=== PATIENT | male | born 1985 | race Caucasian/White ===

== ENCOUNTER 2024-04-04 13:32 | Emergency (ER) | payer BC ==
--- OUTSIDE RECORDS SUMMARY | 2024-04-04 13:36 | XMS REPORT | Continuity of Care Document ---
Author Name Unknown Address [address] [facility] [address] [place] [address] [facility] thconnect Address [address] [facility]. [address] [place] [address] Care Team Providers Care Accounts Adjustable Clerk Name Role Phone Mirlande ACOSTA, Mary Tiwari Primary Care Physician Rojelio Thao Attending Clinician + Unknown, Attending Attending Clinician Unavailab ROJELIO Guzmán Attending Clinician Unavailable Doctor Unassigned, [place] Attending Clinician U Boby Michele Attending Clinician + [phone] Unknown, Attending Attending Clinician Unavailab BOBY Castaneda Attending Clinician Unavailab Lorena Guardado Attending Clinician + [phone] LORENA HOPE Attending Clinician Unavailable Kwan Phillips - Eddie Attending Clinician Unavailable Perla Gaspar MD Attending Clinician Mary Lozano MD Attending Clinician [phone] Rojelio Thao Attending Clinician + SRINIVAS LUGO Attending Clinician UnaSrinivas Bangura MD Attending Clinician +[phone] PERLA GASPAR Attending Clinician Val YARITZA Ferrer Attending Clinician Unavailable Yaritza Esquivel MD Attending Clinician MARY LOZANO Attending Clinician Stu ross Only, Ang Db Test Attending Clinician Unavailabl basia Machuca FRAME HAND, Zoya Attending Clinician [phone] ZOYA MACHUCA Attending Clinician Unavailable 2, [facility] Lab Attending Clinician Unavailable NAOMI BARCENAS Attending Clinician Unavailable Lab, Adc Fam Pob I Attending Clinician Unavailab kathleen MENDOZA, Ritika S Attending Clinician [phone] Pete Garrison DO Attending Clinician [phone] Mingo RN, Tania T Attending Clinician Unavailab kathleen Barcenas FRAME HAND, Naomi Attending Clinician [phone] SRINIVAS LUGO Admitting Clinician Srinivas Maravilla MD Admitting Clinician +- [phone] Payers Payer Name Policy Type Policy Number Effective Date Expirati on Date Source [facility] - OUT OF STATE [id number] 2020 00:00:00 [employer] PPO GENERIC [id number] 2020 00:00:00 Problems Condition Name Condition Details Condition Category Status Onset Date Resolution Date Last Treatment Date Treating Clinician Comments Source Transamini tis Transamini tis Disease Active 01-18 00:00: 00 [facility] Therapeuti c drug monitoring Therapeuti c drug monitoring Disease Active 11-23 00:00: 00 [facility] At risk for bone density loss At risk for bone density loss Disease Active 11-23 00:00: 00 [facility] Elevated alanine aminotrans ferase (ALT) level Elevated alanine aminotrans ferase (ALT) level Disease Active 11-23 00:00: 00 [facility] Ulcerative colitis Ulcerative colitis Disease Active 07-23 00:00: 00 [facility] Testicular torsion Testicular torsion Disease Active 11-20 00:00: 00 Overview: Formattin g of this note might be different from the original. Formattin g of this note might be different from the original. 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 Disease Active 10-14 00:00: 00 [facility] Chronic ulcerative colitis with complicati on Chronic ulcerative colitis with complicati on Disease Active 08-12 00:00: 00 [facility] Chronic pain Chronic pain Disease Active 08-12 00:00: 00 [facility] Insomnia Insomnia Disease Active 08-12 00:00: 00 [facility] Allergies, Adverse Reactions, Alerts Allergy Name Allergy Type Status Severity Reaction(s) Onset Date Inactive Date Treating Clinician Comments Source NO KNOWN ALLERGIE S Drug Class Active [facility] Social History Social Habit Start Date Stop Date Quantity Comments Source History of tobacco use Cigarette Smoker [facility] Gender identity [facility] Sexual orientation [facility] Alcoholic beverage intake 2024-02-26 00:00:00 2024-02-26 00:00:00 0 /d [facility] Alcohol intake 2023-09-24 00:00:00 2023-09-24 00:00:00 0 /d [facility] History of Social function 2023-02-03 00:00:00 2023-02-03 00:00:00 [facility] Exposure to SARS-CoV-2 (event) 2022-08-25 00:00:00 2022-09-04 10:19:00 Not sure [facility] Tobacco use and exposure 2022-06-01 00:00:00 2022-06-01 00:00:00 Smokeless tobacco non-user [facility] Sex assigned at 1985 00:00:00 1985 00:00:00 [facility] Smoking Status Start Date Stop Date Source Ex-smoker 2022-06-01 00:00:00 2022-06-01 00:00:00 [facility] Medications Ordered Medication Name Filled Medication Name Start Date Stop Date Current Medication? Ordering Clinician Indication Dosage Frequency Signature (SIG) Comments Components Source predniSONE 20 mg tablet 2023-05 0-13 00:00: 00 03-27 05:59 :00 Yes [id number] Take 3 tablets by mouth daily for 7 days, THEN 2 tablets daily for 7 days, THEN 1 tablet daily for 7 days. [facility] dexamethaso ne (DECADRON) injection 10 mg 2023-05 0-06 00:15: 00 02-25 23:20 :00 No [id number] 10mg 10 mg, Intramuscu lar, ONCE, 1 dose, On 02/26/24 at 1915, Routine [facility] predniSONE 20 mg tablet 2023-05 0-06 00:00: 00 03-04 04:59 :00 Yes [id number] 40mg Take 2 tablets by mouth in the morning for 5 days. [facility] triamcinolo ne acetonide (KENALOG) injection 40 mg 11-04 16:00: 00 11-04 15:14 :00 No [id number] 40mg [facility] predniSONE 20 mg tablet 11-04 10:04: 00 Yes [facility] vedolizumab (ENTYVIO IV) 11-04 10:03: 32 Yes Inject intravenou sly once every month. [facility] triamcinolo ne acetonide 0.1 % ointment 11-04 00:00: 00 11-10 04:59 :00 No [id number] Apply to area(s) 2 (two) times daily for 5 days. [facility] predniSONE 20 mg tablet 11-04 00:00: 00 11-10 04:59 :00 No [id number] 20mg Take 1 tablet by mouth in the morning and 1 tablet in the evening. Do all this for 5 days. [facility] traZODone 100 mg tablet 09-23 00:00: 00 Yes [id number] 100mg Take 1 tablet by mouth at bedtime. [facility] predniSONE 20 mg tablet 2022-05 00:00: 00 03-18 04:59 :00 No [id number] 40mg Take 2 tablets by mouth in the morning for 5 days. [facility] dexamethaso ne (DECADRON) injection 10 mg 2022-05 19:15: 00 03-11 18:17 :00 No [id number] 10mg [facility] water for irrigation irrigation solution 02-03 15:50: 00 02-03 16:16 :49 No PRN, Starting on Wed02/03/23 at 1050, Until Wed02/03/23 at 1116, Routine, Intra-op [facility] simethicone (GAS RELIEF (SIMETHICON E)) 40 mg/0.6 mL drops 02-03 15:50: 00 02-03 16:16 :49 No PRN, Starting on Wed02/03/23 at 1050, Until Wed02/03/23 at 1116, Routine, Intra-op [facility] lactated ringers IV infusion 1,000 mL 02-03 15:00: 00 02-03 15:04 :00 No 1000mL at 42 mL/hr, 1,000 mL, IV Infusion, ONCE, 1 dose, On Wed02/03/23 at 1000, Routine, DSU Pre-op [facility] vedolizumab (ENTYVIO IV) 02-03 11:51: 54 Yes Inject intravenou sly once every month. [facility] ciprofloxac in HCl (CIPRO) 500 mg tablet 11-21 00:00: 00 11-27 04:59 :00 No [id number] 500mg Take 1 tablet by mouth every 12 (twelve) hours for 5 days. [facility] vedolizumab (ENTYVIO IV) 09-04 10:34: 38 Yes Inject intravenou sly once every month. [facility] traZODone 100 mg tablet 09-04 00:00: 00 09-23 00:00 :00 No [id number] 100mg Take 1 tablet by mouth at bedtime. [facility] triamcinolo ne acetonide (KENALOG) injection 40 mg 06-01 18:30: 00 06-01 17:36 :00 No [id number] 40mg [facility] predniSONE 10 mg tablet 06-01 00:00: 00 06-17 05:59 :00 No [id number] Take 4 tablets by mouth daily for 5 days, THEN 2 tablets daily for 5 days, THEN 1 tablet daily for 5 days. [facility] traZODone 100 mg tablet 08-12 00:00: 00 09-04 00:00 :00 No [id number] 100mg Take 1 tablet by mouth at bedtime. [facility] vedolizumab (ENTYVIO IV) 07-11 10:20: 02 Yes Inject intravenou sly once every month. [facility] HYDROcodone -acetaminop hen 7.5-325 mg per tablet 11-17 00:00: 00 Yes 1{tbl} 1 tablet 3 (three) times daily as needed for Pain. [facility] traMADOL (ULTRAM) 50 mg tablet 07-23 00:00: 00 Yes 50mg Take 1 tablet by mouth in the morning and 1 tablet in the evening. [facility] Immunizations Ordered Immunization Name Filled Immunization Name Date Status Comments Source Influenza Virus Vaccine Quad IM, Preserv and ABX Free 6 MO-64 YRS (FLUCELVAX) 2023-03-11 00:00:00 Completed [facility] Influenza Virus Vaccine Quad IM, Preserv and ABX Free 6 MO-64 YRS (FLUCELVAX) 2023-03-11 00:00:00 Completed [facility] TDAP 2022-11-21 00:00:00 Completed [facility] TDAP 2022-11-21 00:00:00 Completed [facility] TDAP 2022-11-21 00:00:00 Completed [facility] TDAP 2022-11-21 00:00:00 Completed [facility] TDAP 2022-11-21 00:00:00 Completed [facility] TDAP 2022-11-21 00:00:00 Completed [facility] Influenza Virus Vaccine Quad IM 3+ YRS 2017-07-26 00:00:00 Completed [facility] Influenza Virus Vaccine Quad IM 3+ YRS 2017-07-26 00:00:00 Completed [facility] Influenza Virus Vaccine Quad IM 3+ YRS 2017-07-26 00:00:00 Completed [facility] Influenza Virus Vaccine Quad IM 3+ YRS 2017-07-26 00:00:00 Completed [facility] Influenza Virus Vaccine Quad IM 3+ YRS 2017-07-26 00:00:00 Completed [facility] Influenza Virus Vaccine Quad IM 3+ YRS 2017-07-26 00:00:00 Completed [facility] Influenza Virus Vaccine Quad IM 3+ YRS 2017-07-26 00:00:00 Completed [facility] Influenza Virus Vaccine Quad IM 3+ YRS 2017-07-26 00:00:00 Completed [facility] Influenza Virus Vaccine Quad IM 3+ YRS 2017-07-26 00:00:00 Completed [facility] Influenza Virus Vaccine Quad IM 3+ YRS 2017-07-26 00:00:00 Completed [facility] Influenza Virus Vaccine Quad IM 3+ YRS 2017-07-26 00:00:00 Completed [facility] Influenza Virus Vaccine Quad IM 3+ YRS 2017-07-26 00:00:00 Completed [facility] Influenza Virus Vaccine Quad IM 3+ YRS 2017-07-26 00:00:00 Completed [facility] PPD (TB) 2014-04-13 00:00:00 Completed [facility] PPD (TB) 2014-04-13 00:00:00 Completed [facility] PPD (TB) 2014-04-13 00:00:00 Completed [facility] PPD (TB) 2014-04-13 00:00:00 Completed [facility] PPD (TB) 2014-04-13 00:00:00 Completed [facility] PPD (TB) 2014-04-13 00:00:00 Completed [facility] PPD (TB) 2014-04-13 00:00:00 Completed [facility] PPD (TB) 2014-04-13 00:00:00 Completed [facility] PPD (TB) 2014-04-13 00:00:00 Completed [facility] PPD (TB) 2014-04-13 00:00:00 Completed [facility] PPD (TB) 2014-04-13 00:00:00 Completed [facility] PPD (TB) 2014-04-13 00:00:00 Completed [facility] PPD (TB) 2014-04-13 00:00:00 Completed [facility] Influenza Virus Vaccine Quad IM 3+ YRS Unknown Completed [facility] PPD (TB) Unknown Completed [facility] Influenza Virus Vaccine Quad IM 3+ YRS Unknown Completed [facility] PPD (TB) Unknown Completed [facility] TDAP Unknown Completed [facility] Influenza Virus Vaccine Quad IM, Preserv and ABX Free 6 MO-64 YRS (FLUCELVAX) Unknown Completed [facility] Influenza Virus Vaccine Quad IM 3+ YRS Unknown Completed [facility] PPD (TB) Unknown Completed [facility] TDAP Unknown Completed [facility] Influenza Virus Vaccine Quad IM, Preserv and ABX Free 6 MO-64 YRS (FLUCELVAX) Unknown Completed [facility] Influenza Virus Vaccine Quad IM 3+ YRS Unknown Completed [facility] PPD (TB) Unknown Completed [facility] TDAP Unknown Completed [facility] Influenza Virus Vaccine Quad IM, Preserv and ABX Free 6 MO-64 YRS (FLUCELVAX) Unknown Completed [facility] Influenza Virus Vaccine Quad IM 3+ YRS Unknown Completed [facility] PPD (TB) Unknown Completed [facility] TDAP Unknown Completed [facility] Influenza Virus Vaccine Quad IM, Preserv and ABX Free 6 MO-64 YRS (FLUCELVAX) Unknown Completed [facility] Influenza Virus Vaccine Quad IM 3+ YRS Unknown Completed [facility] PPD (TB) Unknown Completed [facility] TDAP Unknown Completed [facility] Influenza Virus Vaccine Quad IM, Preserv and ABX Free 6 MO-64 YRS (FLUCELVAX) Unknown Completed [facility] Influenza Virus Vaccine Quad IM 3+ YRS Unknown Completed [facility] PPD (TB) Unknown Completed [facility] TDAP Unknown Completed [facility] Influenza Virus Vaccine Quad IM, Preserv and ABX Free 6 MO-64 YRS (FLUCELVAX) Unknown Completed [facility] Influenza Virus Vaccine Quad IM 3+ YRS Unknown Completed [facility] PPD (TB) Unknown Completed [facility] TDAP Unknown Completed [facility] Influenza Virus Vaccine Quad IM, Preserv and ABX Free 6 MO-64 YRS (FLUCELVAX) Unknown Completed [facility] Influenza Virus Vaccine Quad IM 3+ YRS Unknown Completed [facility] PPD (TB) Unknown Completed [facility] TDAP Unknown Completed [facility] Influenza Virus Vaccine Quad IM, Preserv and ABX Free 6 MO-64 YRS (FLUCELVAX) Unknown Completed [facility] Influenza Virus Vaccine Quad IM 3+ YRS Unknown Completed [facility] PPD (TB) Unknown Completed [facility] TDAP Unknown Completed [facility] Influenza Virus Vaccine Quad IM, Preserv and ABX Free 6 MO-64 YRS (FLUCELVAX) Unknown Completed [facility] Influenza Virus Vaccine Quad IM 3+ YRS Unknown Completed [facility] PPD (TB) Unknown Completed [facility] TDAP Unknown Completed [facility] Influenza Virus Vaccine Quad IM, Preserv and ABX Free 6 MO-64 YRS (FLUCELVAX) Unknown Completed [facility] Vital Signs Vital Name Observation Time Observation Value Comments S ource Systolic blood pressure 2024-02-26 23:16:00 123 mm[Hg] [facility] Diastolic blood pressure 2024-02-26 23:16:00 83 mm[Hg] [facility] Heart rate 2024-02-26 23:16:00 93 /min [facility] Body temperature 2024-02-26 23:16:00 36.89 Kassandra [facility] Respiratory rate 2024-02-26 23:16:00 16 /min [facility] Body height 2024-02-26 23:16:00 172.7 cm [facility] Body weight 2024-02-26 23:16:00 88.406 kg [facility] BMI 2024-02-26 23:16:00 29.63 kg/m2 [facility] Oxygen saturation in Arterial blood by Pulse oximetry 2024-02-26 23:16:00 96 /min [facility] Systolic blood pressure 2023-11-05 15:01:00 131 mm[Hg] [facility] Diastolic blood pressure 2023-11-05 15:01:00 81 mm[Hg] [facility] Heart rate 2023-11-05 15:01:00 76 /min [facility] Body temperature 2023-11-05 15:01:00 36.72 Kassandra [facility] Respiratory rate 2023-11-05 15:01:00 18 /min [facility] Body weight 2023-11-05 15:01:00 88.406 kg [facility] BMI 2023-11-05 15:01:00 29.63 kg/m2 [facility] Oxygen saturation in Arterial blood by Pulse oximetry 2023-11-05 15:01:00 98 /min [facility] Systolic blood pressure 2023-09-24 16:13:00 114 mm[Hg] [facility] Diastolic blood pressure 2023-09-24 16:13:00 75 mm[Hg] [facility] Heart rate 2023-09-24 16:13:00 99 /min [facility] Body height 2023-09-24 16:13:00 172.7 cm [facility] Body weight 2023-09-24 16:13:00 88.451 kg [facility] BMI 2023-09-24 16:13:00 29.65 kg/m2 [facility] Oxygen saturation in Arterial blood by Pulse oximetry 2023-09-24 16:13:00 97 /min [facility] Systolic blood pressure 2023-03-11 17:54:00 119 mm[Hg] [facility] Diastolic blood pressure 2023-03-11 17:54:00 80 mm[Hg] [facility] Heart rate 2023-03-11 17:54:00 85 /min [facility] Body temperature 2023-03-11 17:54:00 37 Kassandra [facility] Respiratory rate 2023-03-11 17:54:00 16 /min [facility] Body height 2023-03-11 17:54:00 172.7 cm [facility] Body weight 2023-03-11 17:54:00 86.75 kg [facility] BMI 2023-03-11 17:54:00 29.08 kg/m2 [facility] Oxygen saturation in Arterial blood by Pulse oximetry 2023-03-11 17:54:00 97 /min [facility] Systolic blood pressure 2023-02-03 16:40:00 122 mm[Hg] [facility] Diastolic blood pressure 2023-02-03 16:40:00 83 mm[Hg] [facility] Heart rate 2023-02-03 16:40:00 82 /min [facility] Respiratory rate 2023-02-03 16:40:00 10 /min [facility] Oxygen saturation in Arterial blood by Pulse oximetry 2023-02-03 16:40:00 99 /min [facility] Body temperature 2023-02-03 16:15:00 36.67 Kassandra [facility] Body height 2023-01-29 19:00:00 172.7 cm [facility] Body weight 2023-01-29 19:00:00 88.451 kg [facility] BMI 2023-01-29 19:00:00 29.65 kg/m2 [facility] Systolic blood pressure 2023-02-03 16:20:00 127 mm[Hg] [facility] Diastolic blood pressure 2023-02-03 16:20:00 92 mm[Hg] [facility] Heart rate 2023-02-03 16:20:00 99 /min [facility] 2023-02-03 16:20:00 17 /min [facility] Oxygen saturation in Arterial blood by Pulse oximetry 2023-02-03 16:20:00 99 /min [facility] Body temperature 2023-02-03 16:15:00 36.67 Kassandra [facility] Body height 2023-01-29 19:00:00 172.7 cm [facility] Body weight 2023-01-29 19:00:00 88.451 kg [facility] BMI 2023-01-29 19:00:00 29.65 kg/m2 [facility] Systolic blood pressure 2022-11-22 00:12:00 107 mm[Hg] [facility] Diastolic blood pressure 2022-11-22 00:12:00 69 mm[Hg] [facility] Heart rate 2022-11-22 00:11:00 90 /min [facility] Body temperature 2022-11-22 00:11:00 36.67 Kassandra [facility] Respiratory rate 2022-11-22 00:11:00 18 /min [facility] Body height 2022-11-22 00:11:00 172.7 cm [facility] Body weight 2022-11-22 00:11:00 86.773 kg [facility] BMI 2022-11-22 00:11:00 29.09 kg/m2 [facility] Oxygen saturation in Arterial blood by Pulse oximetry 2022-11-22 00:11:00 98 /min [facility] Systolic blood pressure 2022-09-04 15:29:00 118 mm[Hg] [facility] Diastolic blood pressure 2022-09-04 15:29:00 73 mm[Hg] [facility] Heart rate 2022-09-04 15:29:00 79 /min [facility] Body temperature 2022-09-04 15:29:00 36.89 Kassandra [facility] Respiratory rate 2022-09-04 15:29:00 18 /min [facility] Body height 2022-09-04 15:29:00 172.7 cm [facility] 2022-09-04 15:29:00 88.361 kg [facility] BMI 2022-09-04 15:29:00 29.62 kg/m2 [facility] Oxygen saturation in Arterial blood by Pulse oximetry 2022-09-04 15:29:00 97 /min [facility] Systolic blood pressure 2022-06-01 17:14:00 141 mm[Hg] [facility] Diastolic blood pressure 2022-06-01 17:14:00 85 mm[Hg] [facility] Heart rate 2022-06-01 17:14:00 86 /min [facility] Body temperature 2022-06-01 17:14:00 37.17 Kassandra [facility] Respiratory rate 2022-06-01 17:14:00 18 /min [facility] Body height 2022-06-01 17:14:00 172.7 cm [facility] Body weight 2022-06-01 17:14:00 89.018 kg [facility] BMI 2022-06-01 17:14:00 29.84 kg/m2 [facility] Oxygen saturation in Arterial blood by Pulse oximetry 2022-06-01 17:14:00 99 /min [facility] Systolic blood pressure 2022-01-02 18:59:00 123 mm[Hg] [facility] Diastolic blood pressure 2022-01-02 18:59:00 73 mm[Hg] [facility] Heart rate 2022-01-02 18:59:00 92 /min [facility] Body height 2022-01-02 18:59:00 172.7 cm [facility] Body weight 2022-01-02 18:59:00 91.627 kg [facility] BMI 2022-01-02 18:59:00 30.71 kg/m2 [facility] Oxygen saturation in Arterial blood by Pulse oximetry 2022-01-02 18:59:00 97 /min [facility] Procedures Procedure Date / Time Performed Performing Clinician Source VITAMIN B6, PLASMA 2023-10-05 13:23:00 Lorena Hope [facility] MAGNESIUM 2023-10-05 13:23:00 Lorena Hope [facility] VITAMIN B12, LEVEL 2023-10-05 13:23:00 Lorena Hope [facility] THYROID STIMULATING HORMONE 2023-10-05 13:23:00 Lorena Hope [facility] COMP. METABOLIC PANEL ([id number]) 2023-10-05 13:23:00 Lorena Hope [facility] LIPID PANEL ([id number])(TOTAL CHOLESTEROL, TRIGLYCERIDES, HDL) 2023-10-05 13:23:00 Lorena Hope [facility] CBC WITH DIFF 2023-10-05 13:23:00 [facility] GLYCOSYLATED HEMOGLOBIN (A1C) 2023-10-05 13:23:00 Lorena Hope [facility] VITAMIN D, 25-OH 2023-10-05 13:23:00 Lorena Hope [facility] EXTERNAL PROVIDER RECORDS 2023-04-01 06:01:00 Doctor Unassigned, [place] [facility] FLU VACC (), 6 MO-64 YRS, .5ML, IM, QUAD (FLUCELVAX) 2023-03-11 18:00:03 Rojelio Bray [facility] COLONOSCOPY 2023-02-03 15:33:00 Srinivas Lugo [facility] COLONOSCOPY (ENDO) 2023-02-03 13:06:33 Mary Lozano [facility] COLONOSCOPY (ENDO) 2023-02-03 13:06:33 Mary Lozano [facility] EXTERNAL PROVIDER RECORDS 2023-01-29 05:01:00 Doctor Unassigned, [place] [facility] EXTERNAL PROVIDER RECORDS 2023-01-13 05:01:00 Doctor Unassigned, [place] [facility] EXTERNAL PROVIDER RECORDS 2023-01-13 05:01:00 Doctor Unassigned, [place] [facility] REFERRAL- REQUEST/RESPONSE 2023-01-12 05:01:00 Doctor Unassigned, [place] [facility] REFERRAL- REQUEST/RESPONSE 2023-01-12 05:01:00 Doctor Unassigned, [place] [facility] TDAP VACCINE, >11 YRS, IM 2022-11-22 00:20:33 Rojelio Bray [facility] ASSIGNMENT OF BENEFITS 2022-09-04 15:20:50 Docto r Unassigned, [place] [facility] EXTERNAL PROVIDER RECORDS 2022-01-12 05:01:00 Doctor Unassigned, [place] [facility] Encounters Start Date/Time End Date/Time Encounter Type Admission Type Attending [facility] Facility Care Department Encounter ID Source 2022-07-24 09:24:52 Outpatient [facility] [id number] [facility] 2021-12-17 10:00:02 Outpatient [facility] [id number] [facility] 2021-09-04 14:27:05 Outpatient [facility] [id number] [facility] 2021-03-23 18:30:45 Emergency [facility] [id number] [facility] 2024-03-05 00:00:00 2024-03-05 13:14:35 Telephone Rojelio Bray [facility] 1..840.114 350.1.13.10 4.2.7.2.686 [id number] [facility] 2024-02-26 15:40:00 2024-02-26 18:08:27 Urgent Care Rojelio Bray, Attending [facility] 1..840.114 350.1.13.10 4.2.7.2.686 [id number] [facility] 2024-02-26 15:40:00 2024-02-26 18:08:27 Outpatient R ROJELIO BRAY [facility] [id number] [facility] 2023-10-21 00:00:00 2023-11-27 18:27:57 Patient Secure Msg Doctor Unassigned, [place] [facility] 1..840.114 350.1.13.10 4.2.7.2.686 [id number] [facility] 2023-11-05 10:00:00 2023-11-05 10:20:00 Urgent Care Boby Amaral, Attending [facility] 1.284.114 350.1.13.10 4.2.7.2.686 [id number] [facility] 2023-11-05 10:00:00 2023-11-05 10:00:00 Outpatient R BOBY AMARAL [facility] [id number] [facility] 2023-10-22 00:00:00 2023-10-22 12:36:47 Letter (Out) [facility] 1..114 350.1.13.10 4.2.7.2.686 [id number] [facility] 2023-10-06 00:00:00 2023-10-06 15:12:30 Telephone Lorena Hope [facility] 1.84.114 350.1.13.10 4.2.7.2.686 [id number] [facility] 2023-10-05 08:15:00 2023-10-05 08:33:06 Outpatient R LORENA HOPE [facility] [id number] [facility] 2023-10-05 08:15:00 2023-10-05 08:33:06 Core Inspector Visit Lab, Ang - Lorena Kate [facility] 1.840.114 350.1.13.10 4.2.7.2.686 [id number] [facility] 2023-09-24 11:30:00 2023-09-24 11:46:50 Outpatient R LORENA HOPE [facility] [id number] [facility] 2023-09-24 11:30:00 2023-09-24 11:46:50 Office Visit Lorena Hope [facility] 1.84.114 350.1.13.10 4.2.7.2.686 [id number] [facility] 2023-09-14 00:00:00 2023-09-14 00:00:00 Refill Perla Gaspar [facility] 1.84.114 350.1.13.10 4.2.7.2.686 [id number] [facility] 2023-04-01 00:00:00 2023-04-01 00:00:00 Orders Only Doctor Unassigned, [place] [facility] 1.84.114 350.1.13.10 4.2.7.2.686 [id number] [facility] 2023-03-25 00:00:00 2023-03-25 00:00:00 Telephone Mary Lozano [facility] 1.840.114 350.1.13.10 4.2.7.2.686 [id number] [facility] 2023-03-11 13:00:00 2023-03-11 13:26:00 Outpatient R ROJELIO BRAY [facility] [id number] [facility] 2023-03-11 13:00:00 2023-03-11 13:26:00 Urgent Care Rojelio Bray Unknown, Attending [facility] 1.840.114 350.1.13.10 4.2.7.2.686 [id number] [facility] 2023-02-03 09:51:00 2023-02-03 11:49:00 Outpatient R SRINIVAS PIMENTEL [facility] [id number] [facility] 2023-02-03 09:51:00 2023-02-03 11:49:00 Hospital Encounter Srinivas Pimentel [facility] 1.840.114 350.1.13.10 4.2.7.2.686 [id number] [facility] 2023-02-03 10:41:00 2023-02-03 11:23:00 Surgery Srinivas Pimentel [facility] 1.2840.114 350.1.13.10 4.2.7.2.686 [id number] [facility] 2023-01-29 00:00:00 2023-01-29 00:00:00 Orders Only Doctor Unassigned, [place] [facility] 1.2840.114 350.1.13.10 4.2.7.2.686 [id number] [facility] 2022-11-21 18:40:00 2022-11-21 19:00:00 Urgent Care Rojelio Bray Unknown, Attending [facility] 1..114 350.1.13.10 4.2.7.2.686 [id number] [facility] 2022-11-21 18:40:00 2022-11-21 18:40:00 Outpatient R ROJELIO BRAY [facility] [id number] [facility] 2022-09-14 00:00:00 2022-09-14 00:00:00 Mary Lara [facility] 1.0.114 350.1.13.10 4.2.7.2.686 [id number] [facility] 2022-09-04 10:30:00 2022-09-04 10:45:00 Office Visit Perla Gaspar [facility] 1.840.114 350.1.13.10 4.2.7.2.686 [id number] [facility] 2022-09-04 10:30:00 2022-09-04 10:30:00 Outpatient R PERLA GASPAR [facility] [id number] [facility] 2022-09-04 00:00:00 2022-09-04 00:00:00 Orders Only Doctor Unassigned, [place] [facility] 1..840.114 350.1.13.10 4.2.7.2.686 [id number] [facility] 2022-08-14 00:00:00 2022-08-14 00:00:00 Refill Mary Lozano [facility] 1.2.840.114 350.1.13.10 4.2.7.2.686 [id number] [facility] 2022-06-01 11:00:00 2022-06-01 11:21:14 Outpatient R YARITZA ESQUIVEL [facility] [id number] [facility] 2022-06-01 11:00:00 2022-06-01 11:21:14 Urgent Care Yaritza Esquivel Unknown, Attending [facility] 1..840.114 350.1.13.10 4.2.7.2.686 [id number] [facility] 2022-01-12 00:00:00 2022-01-12 00:00:00 Orders Only Doctor Unassigned, [place] [facility] 1.2.840.114 350.1.13.10 4.2.7.2.686 [id number] [facility] 2022-01-02 14:20:27 2022-01-02 23:59:00 Outpatient R MARY LOZANO [facility] [id number] [facility] 2022-01-02 14:00:00 2022-01-02 14:15:00 Office Visit Mary Lozano [facility] 1..840.114 350.1.13.10 4.2.7.2.686 [id number] [facility] 2022-01-02 14:00:00 2022-01-02 14:00:00 Outpatient R MARY LOZANO [facility] [id number] [facility] 2021-08-12 13:15:00 2021-08-12 13:30:00 Office Visit Mary Lozano [facility] 1..840.114 350.1.13.10 4.2.7.2.686 [id number] [facility] 2021-08-12 13:15:00 2021-08-12 13:15:00 Outpatient R MARY LOZANO [facility] [id number] [facility] 2021-06-05 16:00:00 2021-06-05 16:15:00 Laboratory Only Only, Ang Db Test Sven [facility] 1..840.114 350.1.13.10 4.2.7.2.686 [id number] [facility] 2021-06-05 16:00:00 2021-06-05 16:06:55 Outpatient R SVENBOSSMANY [facility] [id number] [facility] 2021-05-13 10:30:00 2021-05-13 10:30:00 Core Inspector Visit 2, Adc Lab Srinivas Pimentel [facility] N[facility] BUILD[facility] 1..840.114 350.1.13.10 4.2.7.2.686 [id number] [facility] 2021-05-13 10:30:00 2021-05-13 10:20:32 Outpatient SRINIVAS ARANGO [facility] [id number] [facility] 2020-12-23 13:20:00 2020-12-23 13:20:00 Outpatient R MELONY BARCENASTHIA [facility] [id number] [facility] 2020-12-04 16:54:32 2020-12-04 17:14:32 Laboratory Only Lab, Adc Fam Pob I MunirAdeBoby J [facility] One 1.114 350.1.13.10 4.2.7.2.686 [id number] [facility] 2020-12-04 17:00:00 2020-12-04 17:00:00 Outpatient R BOBY AMARAL [facility] [id number] [facility] 2020-11-27 00:00:00 2020-11-27 00:00:00 Telephone Mary Lozano [facility] One 1.114 350.1.13.10 4.2.7.2.686 [id number] [facility] 2020-11-26 00:00:00 2020-11-26 00:00:00 Orders Only Doctor Unassigned, [place] [facility] 1.114 350.1.13.10 4.2.7.2.686 [id number] [facility] 2020-10-01 16:31:00 2020-10-01 18:33:00 Emergency Ritika Monge S [facility] 1..114 350.1.13.10 4.2.7.2.686 [id number] [facility] 2020-10-01 00:00:00 2020-10-01 00:00:00 Orders Only Doctor Unassigned, [place] [facility] 1.0.114 350.1.13.10 4.2.7.2.686 [id number] [facility] 2020-09-16 14:45:00 2020-09-16 14:45:00 Outpatient R SRINIVAS PIMENTEL [facility] [id number] [facility] 2020-09-16 13:47:10 2020-09-16 14:02:10 Core Inspector Visit 2, Adc Lab Srinivas Pimentel [facility] nal Building 1.114 350.1.13.10 4.2.7.2.686 [id number] [facility] 2020-09-16 00:00:00 2020-09-16 00:00:00 Orders Only Doctor Unassigned, [place] [facility] 1..114 350.1.13.10 4.2.7.2.686 [id number] [facility] 2020-08-12 00:00:00 2020-08-12 00:00:00 Patient Outreach Pete Garrison [facility] 1..114 350.1.13.10 4.2.7.2.686 [id number] [facility] 2020-07-16 16:12:12 2020-07-16 16:27:12 Office Visit Mary Lozano [facility] Office Building One 1.114 350.1.13.10 4.2.7.2.686 [id number] [facility] 2020-07-16 16:15:00 2020-07-16 16:15:00 Outpatient R MARY LOZANO [facility] [id number] [facility] 2020-07-11 00:00:00 2020-07-11 00:00:00 Refill Mary Lozano [facility] Office Building One 1.114 350.1.13.10 4.2.7.2.686 [id number] [facility] 2020-07-11 00:00:00 2020-07-11 00:00:00 Siomarajuanis Mary Lozano [facility] Office Building One 1.114 350.1.13.10 4.2.7.2.686 [id number] [facility] 2020-01-27 00:00:00 2020-01-27 00:00:00 Letter (Out) Tania Aguila [facility] 1. 350.1.13.10 4.2.7.2.686 [id number] [facility] 2020-01-27 00:00:00 2020-01-27 00:00:00 Patient Secure Msg Doctor Unassigned, [place] [facility] 1. 350.1.13.10 4.2.7.2.686 [id number] [facility] 2020-01-26 10:42:02 2020-01-26 11:02:02 Laboratory Only Lab, [facility] One 1. 350.1.13.10 4.2.7.2.686 [id number] [facility] 2020-01-26 11:00:00 2020-01-26 11:00:00 Outpatient R NAOMI BARCENAS [facility] [id number] [facility] 2019-12-15 00:00:00 2019-12-15 00:00:00 Orders Only Doctor Unassigned, [place] [facility] 1.114 350.1.13.10 4.2.7.2.686 [id number] [facility] 2019-11-16 00:00:00 2019-11-16 00:00:00 Orders Only Doctor Unassigned, [place] [facility] 1.114 350.1.13.10 4.2.7.2.686 [id number] [facility] 2019-07-11 10:03:39 2019-07-11 10:18:39 Office Visit Mary Lozano [facility] Office Building One 1.84.114 350.1.13.10 4.2.7.2.686 [id number] [facility] 2019-07-11 00:00:00 2019-07-11 00:00:00 Orders Only Doctor Unassigned, [place] [facility] 1..114 350.1.13.10 4.2.7.2.686 [id number] [facility] 2019-05-30 00:00:00 2019-05-30 00:00:00 Refill Mirlande [facility] Office Building One 1.114 350.1.13.10 4.2.7.2.686 [id number] [facility] Results Test Description Test Time Test Comments Results Result Co mments Source [facility], [id number] 21:30:38* Test Item Value Reference Range Interpretation Comme [facility] VIT B12 (test code = 5739779928) 536 pg/mL 240-930 ARABELLA (test code = ARABELLA) Biotin has been reported to cause a positive bias, interpret results relative to patient's use of biotin. Lab Interpretation (test code = 95086-6) Normal [facility]it[facility] D, [id number] 21:09:57* Test Item Value Reference Range Interpretation Comme [facility] VIT D 25OH (test code = 25183-0) 35 ng/mL 25-80 ARABELLA (test code = ARABELLA) Deficiency: <20 ng/mLInsufficiency : 20-24 ng/mLOptimal: 25-80 ng/mL Lab Interpretation (test code = 99117-7) Normal [facility] HospitalGlycosylated Hemoglobin (A1C)2023-10-05 20:06:11* Test Item Value Reference Range Interpretation Comme nts HGB A1C (test code = 4548-4) 5.3 % 4.0-5.7 ARABELLA (test code = ARABELLA) Reference RangesNormal: <5.7%Prediabetes: 5.7 - 6.4%Diabetes: > 6.5% Lab Interpretation (test code = 68477-3) Normal [facility] HospitalThyroid Stimulating [id number] 18:56:55 * Test Item Value Reference Range Interpretation Comme nts TSH (test code = 9463312391) 1.24 0.45-4.70 Lab Interpretation (test cod e = 06368-9) Normal [facility] HospitalLipid Panel (51173)(Total Cholesterol, Triglycerides, HDL)2023-10-05 18:29:09* Test Item Value Reference Range Interpretation Comme nts CHOL (test code = 3010034101) 189 mg/dL 120-200 HDL (test code = 4317932084) 28 mg/dL >=40 L HDLC RATIO (test code = 0676817024) 6.8 <=5.0 H TRIG (test code = 8264096056) 250 mg/dL 30-170 H LDL CHOL (test code = 12186-4) 111 mg/dL <=160 VLDL (test code = 9854097612) 50 mg/dL 5-60 Lab Interpretation (test cod e = 67148-2) Abnormal [facility] Hospital[facility]esium2024-05-14 18:29:09* Test Item Value Reference Range Interpretation Comme nts MAGNESIUM (test code = 1750836520) 1.8 mg/dL 1.7-2.4 Lab Interpretation (test cod e = 90018-9) Normal [facility] HospitalComp. Metabolic Panel (17373)2023-10-05 18:29:08* Test Item Value Reference Range Interpretation Comme nts NA (test code = 5064938457) 133 mmol/L 135-145 L K (test code = 2281354402) 4.0 mmol/L 3.5-5.0 CL (test code = 6472130932) 97 mmol/L 98-108 L CO2 TOTAL (test code = 7964328334) 30 mmol/L 23-31 AGAP (test code = 2684113636) 6 2-16 BUN (test code = 3441473614) 12 mg/dL 7-23 GLUCOSE (test code = 7266196350) 98 mg/dL 70-110 CREATININE (test code = 2160-0) 0.89 mg/dL 0.60-1.25 TOTAL BILI (test code = 3397344328) 1.0 mg/dL 0.1-1.1 CALCIUM (test code = 7432151430) 8.8 mg/dL 8.6-10.6 T PROTEIN (test code = 0232206674) 7.3 g/dL 6.3-8.2 ALBUMIN (test code = 5737288682) 4.1 g/dL 3.5-5.0 ALK PHOS (test code = 2542821935) 59 U/L 34-122 ALTv (test code = 1742-6) 87 U/L 5-50 H AST(SGOT) (test code = 8559229166) 51 U/L 13-40 H eGFR (test code = 11661-9) 111.1 mL/min/1.73m2 CKD-EPI eGFR (2020). Assuming creatinine has been stable day-to-day for at least three months, the eGFR indicates Category G1 (>= 90 mL/min/1.73 m2) Lab Interpretation (test code = 16283-2) Abnormal [facility] HospitalCb with [id number] 18:22:05* Test Item Value Reference Range Interpretation Comme nts WBC (test code = 6690-2) 7.99 4.20-10.70 RBC (test code = 789-8) 4.64 4.26-5.52 HGB (test code = 718-7) 15.2 g/dL 12.2-16.4 HCT (test code = 4544-3) 42.8 % 38.4-49.3 MCV (test code = 787-2) 92.2 fL 81.7-95.6 MCH (test code = 785-6) 32.8 pg 26.1-32.7 H MCHC (test code = 786-4) 35.5 g/dL 31.2-35.0 H RDW-SD (test code = 69468-4) 46.0 fL 38.5-51.6 RDW-CV (test code = 788-0) 13.5 % 12.1-15.4 PLT (test code = 777-3) 234 150-328 MPV (test code = 50486-6) 9.9 fL 9.8-13.0 NRBC/100 WBC (test code = 8882513598) 0.0 0.0-10.0 NRBC x10^3 (test code = 2516137366) See_Comment [Automated messa ge] The system which generated this result transmitted reference range: 10*3/?L. The reference range was not used to interpret this result as normal/abnormal. GRAN MAT (NEUT) % (test code = 770-8) 56.0 % IMM GRAN % (test code = 8752007777) 0.10 % LYMPH % (test code = 736-9) 35.3 % MONO % (test code = 5905-5) 6.8 % EOS % (test code = 713-8) 1.4 % BASO % (test code = 706-2) 0.4 % GRAN MAT x10^3(ANC) (test code = 1571321211) 4.48 10*3/uL 1.99-6.95 IMM GRAN x10^3 (test code = 2519396307) 0.00-0.06 LYMPH x10^3 (test code = 731-0) 2.82 10*3/uL 1.09-3.23 MONO x10^3 (test code = 742-7) 0.54 10*3/uL 0.36-1.02 EOS x10^3 (test code = 711-2) 0.11 10*3/uL 0.06-0.53 BASO x10^3 (test code = 704-7) 0.03 10*3/uL 0.01-0.09 Lab Interpretation (test code = 53356-5) Abnormal [facility] History and Physical Notes Date/Time Note Provider Source 2023 14:07:27 Formatting of this n ote might be different from the original. Outpatient Preop H&P Referring Physician: Kyle Henriquez MD [address] [address] (phone) (fax) Mary Lozano MD [address] [place] [address] (phone) (fax) Chief Complaint: Follow up-Entyvio Vital Signs: BP (mmHg) Pulse (bpm) Weight (lbs/oz) Height (ft/in) BMI Resp/min Temp 132/80 83 192 / 5 / 8 29.19 16 98.6 (F) History of Present Illness: Tc De Anda is seen today for a follow-up visit. Doing well except the right wrist is swollen when he uses it. He went to Dr Dennis and to a hand specialist in [facility] ULCERATIVE COLITIS PROFILE: AGE OF DIAGNOSIS:20 YEAR OF DIAGNOSIS: 2008 SURGERY: NO. SGI(PROMETHEUS): NO TPMT: Normal activity LAST QUANTIFERON:09-16-2020: Negative BIOLOGICS: Remicade, Humira, Enbrel. Humira STOPPED. Restarted ENTYVIO loading dose May 2018. 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 Ulcerative Colitis Surgical Procedures: Tonsillectomy Medications: Entyvio 300 mg ADMINISTER 300 MG INTRAVENOUSLY OVER 30 MINUTES THIS WEEK AND THEN EVERY 4 WEEKS hydrocodone-acetaminophen 5-325 mg tramadol 50 mg trazodone 100 mg Allergies: Patient has no known allergies or drug allergies Immunizations: Hep A, adult Hep B, adult Influenza, seasonal, injectable Shingles Procedure(s) Performed: Colonoscopy, 12/15/2019, Quiescent lindquist ulcerative colitis Colonoscopy, 08-31-2013, Moderately diffuse idiopathic chronic colitis Colonoscopy, 04-09-2011, Moderately severe pancolitis with backwash ileitis Social History Alcohol: None Tobacco: Former smoker Drugs: None Exercise: None Caffeine: Occasionally. Marital Status: Occupation: NA Family History No history of Celiac sprue, Colon cancer, Colon polyps, Crohn's disease, Liver disease, Stomach cancer, Ulcerative Colitis / IBD Review of Systems: Allergic/Immunologic: Denies HIV exposure, persistent infections, strong allergic reactions or urticaria. Cardiovascular: Denies chest pain, dyspnea with exercise, irregular heart beat, orthopnea, palpitations, peripheral edema, syncope. Constitutional: Complains of fatigue. Denies fever, loss of appetite, malaise, sweats, weight gain, weight loss. ENMT: Denies difficulty swallowing, dizziness, ear pain, nasal obstruction, nose bleeds, sore throat, hearing loss. Endocrine: Denies excessive thirst, hair loss, heat intolerance. Eyes: Denies double vision, loss of vision, photophobia. Gastrointestinal: Complains of abdominal pain, diarrhea. Denies abdominal swelling, change in bowel habits, constipation, gas, heartburn, jaundice, nausea, rectal bleeding, stomach cramps, vomiting, dysphagia, black tarry stools, belching, bloating, Rectal Pain. Genitourinary: Denies dark urine, decrease in urine flow, dysuria, frequent urinary infections, frequent urination, hematuria, impotence, nocturia, urethral discharge or incontinence. Hematologic/Lymphatic: Denies bleeding gums or palpable lymph nodes, easy bruising, prolonged bleeding. Integumentary: Complains of allergies. Denies dryness, hives, itching, jaundice, lesions, rashes. Musculoskeletal: Complains of arthritis, back pain, joint pain, muscle weakness, stiffness. Denies gout, joint deformity. Neurological: Denies dizziness, fainting, frequent headaches, migraine, numbness or tingling, seizures, tremors, vertigo, memory loss. Psychiatric: Complains of difficulty sleeping. Denies anxiety, depression, hallucinations, nervousness, panic attacks, paranoia. Respiratory: Denies asthma, cough, dyspnea, excessive sputum, hemoptysis, shortness of breath with exercise, wheezing. Physical Exam: Constitutional: Appearance: well-developed, appropriate grooming, in no acute distress.. Respiratory: Effort: normal respiratory effort and no intercostal retractions. Auscultation: normal breath sounds, no rubs, wheezes or rhonchi. Cardiovascular: Auscultation: normal, S1 and S2,no gallops,no rubs or murmurs. Peripheral: no edema, varicosities or cyanosis. Gastrointestinal/Abdomen: Abdomen: normal consistency, no tenderness or masses,normal bowel sounds. Liver/Spleen: normal,normal size,not palpable. Lab Results: Test 12/19/2021 12/19/2021 04/26/2019 Units Limits IRON AND TOTAL IRON BINDING CAPACITY % SATURATION 30 33 % (calc) 20 - 48 IRON BINDING CAPACITY 352 315 mcg/dL (calc) 250 - 425 IRON, TOTAL 107 104 mcg/dL 50 - 180 CBC (INCLUDES DIFF/PLT) ABSOLUTE BAND NEUTROPHILS DNR DNR cells/uL 0-750 ABSOLUTE BASOPHILS 41 19 cells/uL 0 - 200 ABSOLUTE BLASTS DNR DNR cells/uL 0 ABSOLUTE EOSINOPHILS 113 154 cells/uL 15 - 500 ABSOLUTE LYMPHOCYTES 3770 4090 cells/uL 850 - 3900 ABSOLUTE METAMYELOCYTES DNR DNR cells/uL 0 ABSOLUTE MONOCYTES 845 691 cells/uL 200 - 950 ABSOLUTE MYELOCYTES DNR DNR cells/uL 0 ABSOLUTE NEUTROPHILS 5531 4646 cells/uL 1500 - 7800 ABSOLUTE NUCLEATED RBC DNR DNR cells/uL 0 ABSOLUTE PROMYELOCYTES DNR DNR cells/uL 0 BAND NEUTROPHILS DNR DNR % BASOPHILS 0.4 0.2 % BLASTS DNR DNR % COMMENT(S) DNR DNR EOSINOPHILS 1.1 1.6 % HEMATOCRIT 45.5 43.2 % 38.5 - 50 HEMOGLOBIN 16.4 15.5 g/dL 13.2 - 17.1 LYMPHOCYTES 36.6 42.6 % MCH 31.9 32.0 pg 27 - 33 MCHC 36.0 35.9 g/dL 32 - 36 MCV 88.5 89.1 fL 80 - 100 METAMYELOCYTES DNR DNR % MONOCYTES 8.2 7.2 % MPV 9.9 10.1 fL 7.5 - 12.5 MYELOCYTES DNR DNR % NEUTROPHILS 53.7 48.4 % NUCLEATED RBC DNR DNR /100 WBC 0 PLATELET COUNT 267 231 Thousand/uL 140 - 400 PROMYELOCYTES DNR DNR % RDW 13.7 13.9 % 11 - 15 REACTIVE LYMPHOCYTES DNR DNR % 0-10 RED BLOOD CELL COUNT 5.14 4.85 Million/uL 4.2 - 5.8 WHITE BLOOD CELL COUNT 10.3 9.6 Thousand/uL 3.8 - 10.8 HEPATIC FUNCTION PANEL ALBUMIN 4.4 4.5 g/dL 3.6 - 5.1 ALBUMIN/GLOBULIN RATIO 1.5 1.7 (calc) 1 - 2.5 ALKALINE PHOSPHATASE 49 53 U/L 40 - 115 ALT 134 70 U/L 9 - 46 AST 53 37 U/L 10 - 40 BILIRUBIN, DIRECT 0.2 0.2 mg/dL < 0.2 BILIRUBIN, INDIRECT 0.7 0.7 mg/dL (calc) 0.2 - 1.2 BILIRUBIN, TOTAL 0.9 0.9 mg/dL 0.2 - 1.2 GLOBULIN 3.0 2.7 g/dL (calc) 1.9 - 3.7 PROTEIN, TOTAL 7.4 7.2 g/dL 6.1 - 8.1 COMPREHENSIVE METABOLIC PANEL ALBUMIN 4.4 4.5 g/dL 3.6 - 5.1 ALBUMIN/GLOBULIN RATIO 1.5 1.7 (calc) 1 - 2.5 ALKALINE PHOSPHATASE 49 53 U/L 40 - 115 ALT 134 70 U/L 9 - 46 AST 53 37 U/L 10 - 40 BILIRUBIN, TOTAL 0.9 0.9 mg/dL 0.2 - 1.2 BUN/CREATININE RATIO NOT APPLICABLE NOT APPLICABLE (calc) 6-22 CALCIUM 9.3 9.4 mg/dL 8.6 - 10.3 CARBON DIOXIDE 30 28 mmol/L 20 - 32 CHLORIDE 99 101 mmol/L 98 - 110 CREATININE 1.19 0.90 mg/dL 0.6 - 1.35 EGFR 80 mL/min/1.73m2 > 60 eGFR 127 mL/min/1.73m2 > 60 eGFR NON-AFR. ANDORRAN 109 mL/min/1.73m2 > 60 GLOBULIN 3.0 2.7 g/dL (calc) 1.9 - 3.7 GLUCOSE 93 82 mg/dL 65 - 99 POTASSIUM 4.3 4.0 mmol/L 3.5 - 5.3 PROTEIN, TOTAL 7.4 7.2 g/dL 6.1 - 8.1 SODIUM 137 138 mmol/L 135 - 146 UREA NITROGEN (BUN) 11 7 mg/dL 7 - 25 HEPATITIS B SURFACE ANTIGEN W/REFL CONFIRM CONFIRMATION DNR HEPATITIS B SURFACE ANTIGEN NON-REACTIVE NON-REACTIVE VITAMIN B12/FOLATE, SERUM PANEL FOLATE, SERUM 20.8 ng/mL VITAMIN B12 683 pg/mL 200 - 1100 QUANTIFERON(R)-TB GOLD PLUS, 1 TUBE MITOGEN-NIL >10.00 IU/mL NIL 0.05 IU/mL QUANTIFERON(R)-TB GOLD PLUS, 1 TUBE NEGATIVE NEGATIVE TB1-NIL 0.01 IU/mL TB2-NIL 0.01 IU/mL T-SPOT(R).TB NEGATIVE CONTROL Passed PANEL A SPOT COUNT CORRECTED FOR NEG CONTROL 0 PANEL B SPOT COUNT CORRECTED FOR NEG CONTROL 1 POSITIVE CONTROL Passed T-SPOT.TB Negative SeeBelow SED RATE BY MODIFIED WESTERGREN SED RATE BY MODIFIED WESTERGREN 2 mm/h < 15 VITAMIN D,25-OH,TOTAL,IA VITAMIN D,25-OH,TOTAL,IA 35 31 ng/mL 30 - 100 Impressions: 1. Ulcerative colitis,Quiescent colitis on 2019. Doing very well on Entyvio with no issues. Plan: Continue Entyvio q 4 weeks at [facility] in [place]; Phone [phone].. Colonoscopy 2. Enteropathic arthropathies- IBD. Plan: CBC w/auto diff CMP (Complete Metabolic Panel) LFT's - Hepatic Panel Amylase and Lipase Vitamin D, 25 Hydroxy (25-OH) Folate / B-12 (serum) Iron /Ferritin/ TIBC / Iron Sat% T-SPOT TB test Colonoscopy with [facility] 02-03-2023 The indications, technique, alternatives, and potential risks and complications were discussed with the patient including, but not limited to, bleeding, perforation, missed lesions, and anesthesia complications. The patient understands the above, wishes to proceed and has given informed consent. Written patient education information was provided to the patient. MAC sedation required due to medical conditions documented above Preop IV orders: IV NS or LR at 50cc/hr Srinivas Lugo MD 02/03/23 9:50 AM [facility] Notes Date/Time Note Provider Source 2024-03-05 13:11:35 Patient states his poison sukumar has not improved since being seen last. He took steroid injection and oral steroids. He states it got a little better but now seems to be spreading still. Will place him on 3 week taper. He states understanding. [facility] 2023-10-05 08:15:00 Images from the original note were not included. Venipuncture collection performed by clean technique on the right anticubitus. Total of 1 attempts were made. Slight pressure and a bandage/dressing were applied to the site(s). The patient experienced no complications. The following specimens were processed according to instructions and sent to [facility] laboratories per lab order on 10/05/2023 : LT BLUE SST 3 RED LAV 2 PPT DK GREEN (LiHep) DK GREEN (SodH) ELMORE DK BLUE (K2) DK BLUE (S) ACD Blood Culture NIPT/NTD 1 lt green [facility] 2023-09-14 12:44:56 Contacted patient. Verbalized understanding. Will make appointment Cindi Gonzales [facility] 2023-09-14 11:52:30 Appointment needed for refills [facility] 2023-09-14 09:15:45 Notes: Please Review Last Refilled: traZODone 100 mg tablet 30 tablet 12 09/04/2022 -- -- Sig: Take 1 tablet by mouth at bedtime. Sent to pharmacy as: traZODone 100 mg tablet (DESYREL) Class: eRX Route: Oral Order: [id number] Date/Time Signed: 09/04/2022 10:42 E-Prescribing Status: Receipt confirmed by pharmacy (09/04/2022 10:42 AM CDT) Recent Visits Date Type Provider Dept 09/04/22 Office Visit Perla Gaspar MD [facility] Med Showing recent visits within past 540 days with a meds authorizing provider and meeting all other requirements Future Appointments No visits were found meeting these conditions. Showing future appointments within next 150 days with a meds authorizing provider and meeting all other requirements [facility] 2023-01-29 14:01:33 Formatting of this n ote might be different from the original. Images from the original note were not included. Your upcoming procedure is at [facility] on 02/03/23. The address is [address] [place] [address], [facility], [id number].The nursing staff at [facility] will call you the workday before your procedure to let you know what time to arrive. When you arrive, please go inside and sign in at the desk. Please note: You may not travel home alone after your procedure and that includes in a taxi or by bus. We must speak to your Responsible Adult (who will be picking you up) the morning of your procedure, before the start of your procedure. This person must be an adult over the age of 18 years of age. Maintain a clear liquid diet the entire day before your procedure. Do not drink anything containing red, blue, or purple dyes. Follow the instructions of your bowel prep as directed by you physician. You may also take your medications the morning of your procedure with a sip of water as directed by physician. Anticoagulants will be per physician Guidance. Medication Note(s)/Instructions: n/a Both patient and person accompanying and/or picking patient up must be able to wear a mask and be without symptoms of COVID 19. Pending screening, a COVID test may be required. If a patient tests positive, their cases are cancelled and/or rescheduled. COVID NOTE: Denies COVID symptoms or exposure, no testing required. Additional questions, concerns, requests:n/a Patient verbalized understanding of pre-op instructions and voiced no further questions at this time. [facility] [employer]
--- NOTE | 2024-04-04 14:21 | RAD REPORT ---
EXAM: CT brain without contrast HISTORY: PAIN COMPARISON: 03/12/2014 plain radiograph TECHNIQUE: Multiple contiguous axial images were obtained and a CT of the brain without contrast. Sag ittal and coronal reformats were performed. One or more of the following dose reduction techniques were used: Automated exposure control, adjust ment of the mA and/or kV according to patient size, and/or iterative reconstruction. FINDINGS: No evidence of hydrocephalus, intracranial hemorrhage, or extra-axial fluid collection. The brain is normal in morphology. No evidence of midline shift or areas of brain edema. The calvarium is intact. The visualized paranasal sinuses and mastoid air cells are essentially clear . IMPRESSION: No evidence of acute intracranial abnormality. EXAM: CT of the cervical spine without contrast HISTORY: Neck pain, injury PAIN TECHNIQUE: Multiple contiguous axial images were obtained in a CT of the cervical spine without contr ast. Sagittal and coronal reformats were performed. FINDINGS: The vertebral bodies demonstrate normal height and alignment. No evidence of acute fracture or subluxation.. No degenerative changes are present. No prevertebral soft tissue swelling is seen. The posterior facets are well aligned. Normal alignment of the skull base with the cervical spine is seen. The lung apices are unremarkable. IMPRESSION: No evidence of acute osseous abnormality of the cervical spine.
--- NOTE | 2024-04-04 14:22 | RAD REPORT ---
EXAM: XR LEFT HAND HISTORY: Pain. PAIN COMPARISON: None TECHNIQUE: Multiple projections of the left hand submitted. FINDINGS: Fracture is suspected involving the base of the second metacarpal radial aspect. No disloca tion.. Mild soft tissue swelling.
--- NOTE | 2024-04-04 14:24 | RAD REPORT ---
EXAM: CT CHEST, ABDOMEN AND PELVIS WITHOUT CONTRAST CLINICAL INDICATION: pain TECHNIQUE: CT chest, abdomen and pelvis was performed without contrast, as per department protocol. A xial, sagittal and coronal reconstructions were obtained. One or more of the following dose reduction techniques were used: Automated exposure control, adjustment of the mA and/or kV according to patient size, and/or iterative reconstruction. Unless otherwise specified, incidental findings do not require dedicated imaging follow-up. Examination is limited by the lack of intravenous contrast material. COMPARISON: No prior exam. FINDINGS: LUNGS: No evidence of airspace or interstitial process. No nodules. PLEURA: No pleural effusion. No pneumothorax. MEDIASTINUM AND LYMPH NODES: No mediastinal mass or fluid collection. Normal size mediastinal, hilar, and axillary lymph nodes. OSSEOUS STRUCTURES AND CHEST WALL: Intact. LIVER: Normal in size and contour. No focal lesion or biliary dilatation. Grossly unremarkable gallbl adder. PANCREAS: No mass, ductal dilation, or lee-pancreatic fluid. SPLEEN: Normal size. No focal lesion. ADRENALS: Normal; no mass. KIDNEYS: Normal size and contour. No hydronephrosis. URINARY BLADDER: Normal contour. GASTROINTESTINAL TRACT: No bowel obstruction, free air, significant free fluid or abscess. APPENDIX: Normal appendix. LYMPH NODES: No lymphadenopathy. MUSCULOSKELETAL: No acute or suspicious osseous abnormality. OTHER: IMPRESSION: No acute or significant abnormalities seen in the chest, abdomen or pelvis.
--- NOTE | 2024-04-04 14:25 | RAD REPORT ---
EXAMINATION: XR LEFT FOREARM CLINICAL INDICATION: PAIN TECHNIQUE: Multiple projections of the left forearm were obtained. COMPARISON: No prior exam. FINDINGS: No fracture or dislocation seen in the forearm.
--- NOTE | 2024-04-04 14:25 | RAD REPORT ---
EXAMINATION: XR RIGHT FOREARM CLINICAL INDICATION: . PAIN TECHNIQUE:Two view radiograph of the right forearm were obtained. COMPARISON: No prior exam. FINDINGS: Bony remodeling distal radius and ulnar shaft likely attributable to trauma. No evidence of acute fracture or dislocation.
[2024-04-04] MEDS ORDERED: DIAZEPAM 5 MG TABLET ONE (14:48)
[2024-04-04] MEDS ORDERED: KETOROLAC 30 MG/ML INJ ONE (14:48)
--- NOTE | 2024-04-04 14:58 | ER ---
Nurse's Notes [facility] Name: Tc De Anda Age: 39 yrs Sex: Male : 1985 Arrival Date: 04/04/2024 Time: 13:32 Bed 26 Private MD: Diagnosis: Fracture of second metacarpal, left hand;Abrasion of lower leg-bilateral;Unspecified injury of head, initial encounter;Pain in left forearm;Pain in right forearm Presentation: 04/04 13:39 Chief complaint: Patient states: Fell 7 feet off a ladder about 1 hour FLOORHAND. Landed on ll1 ladder, no LOC. L wrist pain is the worst. Abrasions B knees. Abrasion R side of face. Coronavirus screen: Client denies travel out of the [place] in the last 14 days. At this time, the client does not indicate any symptoms associated with coronavirus-19. Ebola Screen: Patient denies travel to an Ebola-affected area in the 21 days before illness onset. Initial Sepsis Screen: Does the patient meet any 2 criteria? No. Patient's initial sepsis screen is negative. Does the patient have a suspected source of infection? No. Patient's initial sepsis screen is negative. Risk Assessment: Do you want to hurt yourself or someone else? Patient reports no desire to harm self or others. Onset of symptoms was April 04, 2024. 13:39 Method Of Arrival: Ambulatory ll1 13:39 Acuity: CALLI 3 ll1 Triage Assessment: 13:41 General: Appears uncomfortable, Behavior is calm, cooperative, appropriate for age. ll1 Pain: Complains of pain in L wrist Pain currently is 8 out of 10 on a pain scale. Quality of pain is described as aching. Derm: Reports abrasions to knees, R side of face. Musculoskeletal: Reports pain in L wrist. Injury Description: Bruise. Historical: - Allergies: 13:39 No Known Allergies; ll1 - PMHx: 13:39 ulcerative colitis; ll1 - PSHx: 13:39 Tonsillectomy; ll1 - Immunization history:: Adult Immunizations up to date. - Infectious Disease History:: Denies. - Social history:: Smoking status: Patient denies any tobacco usage or history of. Screenin:56 [facility] ED Fall Risk Assessment (Adult) History of falling in the last 3 months, ph including since admission Yes- single mechanical fall (1 pt) Confusion or Disorientation No (0 pts) Intoxicated or Sedated No (0 pts) Impaired Gait No (0 pts) Mobility Assist Device Used No (0 pt) Altered Elimination No (0 pt) Score/Fall Risk Level 0 - 2 = Low Risk Oriented to surroundings, Maintained a safe environment. Abuse screen: Denies threats or abuse. Denies injuries from another. Nutritional screening: No deficits noted. Tuberculosis screening: No symptoms or risk factors identified. Assessment: 13:55 General: Appears in no apparent distress. comfortable, Behavior is calm, cooperative, ph appropriate for age. Pain: Complains of pain in right knee and left knee and left wrist. Neuro: Level of Consciousness is awake, alert, obeys commands, Oriented to person, place, time, situation. Cardiovascular: Capillary refill < 3 seconds in bilateral fingers Patient's skin is warm and dry. Respiratory: Airway is patent Respiratory effort is even, unlabored, Respiratory pattern is regular, symmetrical. Derm: Skin is pink, warm \T\ dry. Vital Signs: 13:39 BP 148 / 101; Pulse 92; Resp 17; Temp 97.9; Pulse Ox 100% ; Pain 8/10; ll1 15:45 BP 138 / 97; Pulse 89; Resp 18; Temp 97.9; Pulse Ox 98% on R/A; ph 13:39 Pain Scale: Adult ll1 Jessy Coma Score: 15:45 Eye Response: spontaneous(4). Motor Response: obeys commands(6). Verbal Response: ph oriented(5). Total: 15. Trauma Score (Adult): 15:45 Eye Response: spontaneous(1); Verbal Response: oriented(1); Motor Response: obeys ph commands(2); Systolic BP: > 89 mm Hg(4); Respiratory Rate: 10 to 29 per min(4); Eastern Score: 15; Trauma Score: 12 ED Course: 13:34 Patient arrived in ED. mg5 13:35 Radha Mehta FNP-C is [facility]. kb 13:35 Leif Edwards DO is Attending Physician. kb 13:41 Triage completed. ll1 13:41 Arm band placed on. ll1 13:45 Lidia Garcia RN is Primary Nurse. ph 13:57 Patient has correct armband on for positive identification. Call light in reach. Side ph rails up X 1. Pulse ox on. NIBP on. 14:08 Head C Spine Mpr Wo Con In Process Unspecified. EDMS 14:10 Chest Abd Pelvis Wo Con In Process Unspecified. EDMS 14:18 Forearm Left XRAY In Process Unspecified. EDMS 14:18 Forearm Right XRAY In Process Unspecified. EDMS 14:18 Hand Left 3 View XRAY In Process Unspecified. EDMS 15:44 No provider procedures requiring assistance completed. Patient did not have IV access ph during this emergency room visit. Orthoglass splint: radial gutter Sling applied to left arm. Administered Medications: 14:54 Drug: Diazepam PO 5 mg PO once Route: PO; ph 15:45 Follow up: Response: No adverse reaction; Pain is decreased ph 14:54 Drug: Ketorolac IM 30 mg IM once Route: IM; Site: right deltoid; ph 15:45 Follow up: Response: No adverse reaction; Pain is decreased ph Medication: 13:57 VIS not applicable for this client. ph Outcome: 14:58 Discharge ordered by . kb 15:45 Discharged to home ambulatory, with family, ph 15:45 Condition: good 15:45 Discharge instructions given to patient, Instructed on discharge instructions, follow up and referral plans. medication usage, Demonstrated understanding of instructions, follow-up care, medications, splint care, Prescriptions given X 2, 15:46 Patient left the ED. ph Signatures: Dispatcher [employer] EDMS Radha Mehta, MARINE INSULATOR-C MARINE INSULATOR-Lidia Tolbert RN RN Urvashi Cervantes RN RN 1 Hedy Hutchison mg5 Corrections: (The following items were deleted from the chart) 13:41 13:39 Chief complaint: Patient states: Fell 7 feet off a ladder just FLOORHAND. Landed on ll1 ladder, no LOC. L wrist pain is the worst. Abrasions B knees. Abrasion R side of face. ll1
--- NOTE | 2024-04-04 14:58 | EDPHYS ---
Physician Documentation [facility] Name: Tc De Anda Age: 39 yrs Sex: Male : 1985 Arrival Date: 04/04/2024 Time: 13:32 Bed 26 Private MD: ED Physician Leif Edwards HPI: 04/04 13:43 This 39 yrs old Male presents to ER via Ambulatory with complaints of FELL OFF LADDER. kb 13:43 Pt is a 39 year old male who presents after falling from a ladder. States his waist was kb the the level of the roof, the ladder slid from the bottom and fell forward causing him to fall with it to the ground. Reports most pain in left wrist and hand, with some stiffness in neck. Denies shortness of breath. loc. 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 . Historical: - Allergies: 13:39 No Known Allergies; ll1 - PMHx: 13:39 ulcerative colitis; ll1 - PSHx: 13:39 Tonsillectomy; ll1 - Immunization history:: Adult Immunizations up to date. - Infectious Disease History:: Denies. - Social history:: Smoking status: Patient denies any tobacco usage or history of. ROS: 13:43 Constitutional: As per HPI kb Exam: 13:43 Constitutional: This is a well developed, well nourished patient who is awake, alert, kb and in no acute distress. Eyes: Pupils equal round and reactive to light, extra-ocular motions intact. Lids and lashes normal. Conjunctiva and sclera are non-icteric and not injected. Cornea within normal limits. Periorbital areas with no swelling, redness, or edema. ENT: Moist Mucous membranes Cardiovascular: Regular rate Respiratory: Respirations even and unlabored. No increased work of breathing. Talking in full sentences Abdomen/GI: Soft, non-tender. No distention Neuro: Awake and alert, GCS 15, oriented to person, place, time, and situation. 13:43 Musculoskeletal/extremity: Extremities: grossly normal except: noted in the left wrist and left hand: decreased ROM, pain, tenderness, noted in the right knee and left knee: abrasion, noted in the right wrist: pain, tenderness, ROM: limited active range of motion, Circulation is intact in all extremities. Sensation intact. Weight bearing: able to fully bear weight, 13:46 Head/face: Noted is no obvious of injury or deformity except abrasion(s), that are kb mild, of the right taoist, Vital Signs: 13:39 BP 148 / 101; Pulse 92; Resp 17; Temp 97.9; Pulse Ox 100% ; Pain 8/10; ll1 15:45 BP 138 / 97; Pulse 89; Resp 18; Temp 97.9; Pulse Ox 98% on R/A; ph 13:39 Pain Scale: Adult ll1 Pooler Coma Score: 15:45 Eye Response: spontaneous(4). Motor Response: obeys commands(6). Verbal Response: ph oriented(5). Total: 15. Trauma Score (Adult): 15:45 Eye Response: spontaneous(1); Verbal Response: oriented(1); Motor Response: obeys ph commands(2); Systolic BP: > 89 mm Hg(4); Respiratory Rate: 10 to 29 per min(4); Pooler Score: 15; Trauma Score: 12 MDM: 13:35 Medical Screening Exam initiated kb 13:46 Differential diagnosis: fracture, contusion, sprain. Data reviewed: vital signs, nurses kb notes. Historians other than the Patient: Spouse/Significant Other: . 14:56 Counseling: I had a detailed discussion with the patient and/or guardian regarding the kb historical points, exam findings, and any diagnostic results supporting the discharge/admit diagnosis, radiology results, the need for outpatient follow up, a orthopedic surgeon, to return to the emergency department if symptoms worsen or persist or if there are any questions or concerns that arise at home. 04/04 13:43 Order name: Forearm Left XRAY; Complete Time: 14:28 kb 04/04 13:43 Order name: Forearm Right XRAY; Complete Time: 14:28 kb 04/04 13:43 Order name: Hand Left 3 View XRAY; Complete Time: 14:28 kb 04/04 14:07 Order name: Chest Abd Pelvis Wo Con; Complete Time: 14:28 EDMS 04/04 14:08 Order name: Head C Spine Mpr Wo Con; Complete Time: 14:22 EDMS 04/04 14:32 Order name: Misc. Order: Radial gutter splint; Complete Time: 15:45 kb 04/04 14:36 Order name: Sling; Complete Time: 15:45 ph Administered Medications: 14:54 Drug: Diazepam PO 5 mg PO once Route: PO; ph 15:45 Follow up: Response: No adverse reaction; Pain is decreased ph 14:54 Drug: Ketorolac IM 30 mg IM once Route: IM; Site: right deltoid; ph 15:45 Follow up: Response: No adverse reaction; Pain is decreased ph Disposition: 15:07 I was immediately available on-site in the Emergency Department for consultation in the ms3 care of the patient. Disposition Summary: 04/04/24 14:58 Discharge Ordered Notes: Location: Home kb Condition: Stable kb Diagnosis - Fracture of second metacarpal, left hand kb - Abrasion of lower leg - bilateral kb - Unspecified injury of head, initial encounter kb - Pain in left forearm kb - Pain in right forearm kb Followup: kb - With: Emergency Department - When: As needed - Reason: Worsening of condition Followup: kb - With: Private Physician - When: 2 - 3 days - Reason: Recheck today's complaints, Continuance of care, Re-evaluation by your physician Discharge Instructions: - Discharge Summary Sheet kb - Head Injury, Pediatric kb - Musculoskeletal Pain kb - Metacarpal Fracture, [id number] kb Forms: - Medication Reconciliation Form kb - Antibiotic Education kb - Prescription Opioid Use kb - Patient Portal Instructions kb - Leadership Thank You Letter kb - Work release form Prescriptions: - Diclofenac Sodium 75 mg Oral tablet, delayed release (enteric coated) - take 1 tablet ORAL route 2 times per day As needed; 30 tablet; Refills: 0, kb Product Selection Permitted - orphenadrine citrate 100 mg Oral Tablet Sustained Release - take 1 tablet ORAL route 2 times per day As needed; 20 tablet; Refills: 0, kb Product Selection Permitted Signatures: Dispatcher [employer] EDMS Radha Mehta, MASTIC MAN-C MASTIC MAN-Lidia Tolbert RN RN ph Urvashi Cervantes RN RN 1 Leif Edwards DO DO ms3 Corrections: (The following items were deleted from the chart) 13:44 13:44 Forearm Left+RAD.RAD.BRZ ordered. EDMS EDMS 13:44 13:44 Forearm Right+RAD.RAD.BRZ ordered. EDMS EDMS 13:44 13:44 Hand Left 3 View+RAD.RAD.BRZ ordered. EDMS EDMS 14:08 13:44 Head C Spine Cap Wo Con+CT.RAD.BRZ ordered. EDMS EDMS
[2024-04-04 15:56] VITALS: TEMP 97.9
[2024-04-04 15:57] VITALS: BP 138/97; O2SAT 98
== END 2024-04-04 15:46 | disposition home or self-care (01) ==
LOC: ER 13:32
DX: S62.301A Unspecified fracture of second metacarpal bone, left hand, initial encounter for closed fracture (principal); S80.812A Abrasion, left lower leg, initial encounter; S80.811A Abrasion, right lower leg, initial encounter; S09.90XA Unspecified injury of head, initial encounter; W11.XXXA Fall on and from ladder, initial encounter
CPT/HCPCS: 70450; 71250; 72125; 74176